=== PATIENT | female | born 1935 | race Caucasian/White ===

== ENCOUNTER 2019-10-09 04:09 | Observation (INO) | payer MEDICARE, MEDICAID ==
[~2019-10-09] VITALS: Ht 165.1 cm; Wt 97.0 kg
[2019-10-09] MEDS ORDERED: magnesium 2GM in 50ml NS 50 ML IV PRN (04:30)
[2019-10-09] MEDS ORDERED: potassium Cl 20 mEq SR tablet PO PRN ×2 (04:30)
[2019-10-09] MEDS ORDERED: magnesium hydroxide 30ml (MOM) UD suspension PO PRN (04:30)
[2019-10-09] MEDS ORDERED: mag hydrox/Alum hydrox/simeth 30ml oral suspension PO PRN (04:30)
[2019-10-09] MEDS ORDERED: ondansetron/PF 4mg/2ml inj IV PRN (04:30)
[2019-10-09] MEDS ORDERED: magnesium Cl slow-release 64mg tablet PO PRN (04:30)
[2019-10-09] MEDS ORDERED: HYDROcodone/acetaminophen 5mg/325mg tablet PO PRN (04:30)
[2019-10-09] MEDS ORDERED: acetaminophen 325mg tablet PO PRN (04:30)
[2019-10-09] MEDS ORDERED: potassium CL 10mEq/100ml bag 100 ML IV PRN ×2 (04:30)
[2019-10-09] MEDS ORDERED: magnesium 4gm in 100ml NS 100 ML IV PRN (04:30)
[2019-10-09] MEDS ORDERED: FURO-149 PO (04:39)
[2019-10-09] MEDS ORDERED: NITR1PAT63 TD (04:39)
[2019-10-09] MEDS ORDERED: METO25TA6 PO (04:39)
[2019-10-09] MEDS ORDERED: NYSPWD TP (04:39)
[2019-10-09] MEDS ORDERED: SPIR25TA5 PO (04:39)
[2019-10-09] MEDS ORDERED: ACET-1025 PO (04:39)
[2019-10-09] MEDS ORDERED: POTA10TA19 PO (04:39)
[2019-10-09] MEDS ORDERED: non-formulary drug (Acetaminophen (Tylenol Extra Strength) 1 TAB) PO PRN (05:35)
--- NOTE | 2019-10-09 06:35 | NUR ---
Patient lying supine,asleep.awaiting room assignment.
--- NOTE | 2019-10-09 07:55 | NUR ---
Patient in room ED 6. I have received report from Jacky PARKS and had the opportunity to ask questions and assume patient care.
[2019-10-09] MEDS: K and/or MAG REPLACEMENT MC SCH ×2 (08:00→20:00)
--- NOTE | 2019-10-09 08:45 | NUR ---
Patient oriented to unit, transferred by slide board, VS 100.7 degrees, tylenol given, HR 65, RR 26 on 2L NC, BP 132/68, no pain, wound care consult and TP E&T ordered.
[2019-10-09] MEDS: docusate sod 100mg capsule PO SCH ×2 (08:49→21:10)
[2019-10-09] MEDS: spironolactone 25 MG tablet PO SCH (08:50)
[2019-10-09] MEDS: furosemide 40mg tablet PO SCH (08:50)
[2019-10-09] MEDS: metoprolol tartrate 25mg tablet PO SCH (08:51)
[2019-10-09 09:00] VITALS: BP 132/68
[2019-10-09 10:00] VITALS: BP 103/47
[2019-10-09] MEDS ORDERED: vancomycin/NS 1 GM ADD-VANTAGE 250 ML IV ONE (10:10)
--- NOTE | 2019-10-09 10:18 | NUR ---
Paged Dr. Ratliff. Will Partida. [id number]. Would you like cultures drawn prior to starting the IV Vanco and Zosyn? Virgil [phone]
[2019-10-09 11:02] LABS: BASOPHILS # (AUTO) 0.1 X10'3 (0-0.2); BASOPHILS % (AUTO) 0.8 % (0-1); EOSINOPHILS # (AUTO) 0.1 X10'3 (0-0.9); EOSINOPHILS % (AUTO) 1.1 % (0-6); HEMATOCRIT 27.5 % (35.0-45.0); HEMOGLOBIN 9.1 g/dl (12.0-16.0); LYMPHOCYTES # (AUTO) 0.6 X10'3 (1.1-4.8); LYMPHOCYTES % (AUTO) 8.8 % (21-51); MEAN CORPUSCULAR HEMOGLOBIN 28.5 PG (27.0-31.0); MEAN CORPUSCULAR VOLUME 86.5 FL (78-98); MEAN PLATELET VOLUME 7.1 FL (7.4-10.4); MONOCYTES # (AUTO) 1.1 X10'3 (0-0.9); MONOCYTES % (AUTO) 14.8 % (2-12); NEUTROPHILS # (AUTO) 5.4 X10'3 (1.8-7.7); NEUTROPHILS % (AUTO) 74.5 % (42-75); PLATELET COUNT 188 X10'3 (140-440); RED BLOOD COUNT 3.18 X10'6 (4.20-5.60); RED CELL DISTRIBUTION WIDTH 15.9 % (11.5-14.5); WHITE BLOOD COUNT 7.2 X10'3 (4.5-11.0)
[2019-10-09 11:19] LABS: ALANINE AMINOTRANSFERASE 9 U/L (12-78); ALKALINE PHOSPHATASE 62 IU/L (46-116); ANION GAP 5 (8-16); CALCIUM 8.1 MG/DL (8.5-10.1); CHLORIDE 104 MMOL/L (99-107); CREATININE 0.99 MG/DL (0.40-0.90); MAGNESIUM 1.8 MG/DL (1.5-2.4); POTASSIUM 4.5 MMOL/L (3.5-5.1); SODIUM 133 MMOL/L (135-145); TOTAL CARBON DIOXIDE 24.3 MMOL/L (24-32); eGFR 53 ML/MIN
[2019-10-09 11:27] LABS: ALBUMIN 2.2 G/DL (3.4-5.0); ALBUMIN/GLOBULIN RATIO 0.3 (1.1-1.5); ASPARTATE AMINO TRANSFERASE 16 U/L (10-37); BILIRUBIN,TOTAL 1.5 MG/DL (0.1-1.0); BLOOD UREA NITROGEN 18 MG/DL (7-18); BUN/CREATININE RATIO 18.2 (6.6-38.0); GLUCOSE 122 MG/DL (70-104); TOTAL PROTEIN 8.5 G/DL (6.4-8.2)
[2019-10-09] MEDS ORDERED: NITR0.4T51 SL (14:21)
--- NOTE | 2019-10-09 15:40 | NUR ---
Student documentation: I have reviewed assessment performed and documented by Shellie GREGORY [facility].
[2019-10-09] MEDS: piperacillin/tazo 3.375gm/50ml 50 ML IV SCH ×2 (15:49→16:00)
[2019-10-09] MEDS: normal saline 1000ml 1,000 ML IV SCH (15:59)
--- NOTE | 2019-10-09 16:51 | NUR ---
Patient has dentures in.
[2019-10-09 18:00] VITALS: BP 122/46
--- NOTE | 2019-10-09 18:27 | NUR ---
Attempted straight cath for UA multiple times, but patient is refusing and non-cooperative.
--- NOTE | 2019-10-09 18:30 | NUR ---
Problems reprioritized. Patient report given, questions answered & plan of care reviewed with Anya PARKS.
[2019-10-09 22:00] VITALS: BP 128/44
[2019-10-10] MEDS: piperacillin/tazo 3.375gm/50ml 50 ML IV SCH ×4 (01:32→23:52)
--- NOTE | 2019-10-10 02:00 | NUR ---
Patient in room ORTHO 4018. I have received report from Teresita PARKS and had the opportunity to ask questions and assume patient care.
[2019-10-10 02:30] VITALS: BP 119/60
[2019-10-10] MEDS: normal saline 1000ml 1,000 ML IV SCH ×2 (04:45→19:41)
[2019-10-10 05:42] LABS: ANION GAP 5 (8-16); CHLORIDE 103 MMOL/L (99-107); CREATININE 1.03 MG/DL (0.40-0.90); SODIUM 134 MMOL/L (135-145); TOTAL CARBON DIOXIDE 26.4 MMOL/L (24-32); eGFR 51 ML/MIN
[2019-10-10 05:53] LABS: ALANINE AMINOTRANSFERASE 8 U/L (12-78); ALBUMIN 2.1 G/DL (3.4-5.0); ALBUMIN/GLOBULIN RATIO 0.3 (1.1-1.5); ALKALINE PHOSPHATASE 63 IU/L (46-116); ASPARTATE AMINO TRANSFERASE 12 U/L (10-37); BILIRUBIN,TOTAL 1.8 MG/DL (0.1-1.0); BLOOD UREA NITROGEN 20 MG/DL (7-18); BUN/CREATININE RATIO 19.4 (6.6-38.0); CALCIUM 8.2 MG/DL (8.5-10.1); GLUCOSE 93 MG/DL (70-104); TOTAL PROTEIN 8.4 G/DL (6.4-8.2)
[2019-10-10 05:58] LABS: BASOPHILS # (AUTO) 0.1 X10'3 (0-0.2); BASOPHILS % (AUTO) 0.9 % (0-1); EOSINOPHILS # (AUTO) 0.2 X10'3 (0-0.9); EOSINOPHILS % (AUTO) 2.6 % (0-6); HEMATOCRIT 27.8 % (35.0-45.0); LYMPHOCYTES % (AUTO) 14.7 % (21-51); MEAN CORPUSCULAR HEMOGLOBIN 28.3 PG (27.0-31.0); MEAN CORPUSCULAR HGB CONC 32.5 g/dL (33.0-36.5); MEAN CORPUSCULAR VOLUME 87.1 FL (78-98); MEAN PLATELET VOLUME 7.1 FL (7.4-10.4); MONOCYTES % (AUTO) 14.2 % (2-12); NEUTROPHILS # (AUTO) 4.8 X10'3 (1.8-7.7); NEUTROPHILS % (AUTO) 67.6 % (42-75); PLATELET COUNT 165 X10'3 (140-440); RED BLOOD COUNT 3.19 X10'6 (4.20-5.60); RED CELL DISTRIBUTION WIDTH 15.8 % (11.5-14.5); WHITE BLOOD COUNT 7.1 X10'3 (4.5-11.0)
--- NOTE | 2019-10-10 06:44 | NUR ---
Problems reprioritized. Patient report given, questions answered & plan of care reviewed with Sharonda PARKS.
--- NOTE | 2019-10-10 06:56 | NUR ---
Patient in room PAUL 358. I have received report from Gricelda PARKS and had the opportunity to ask questions and assume patient care.
[2019-10-10 08:00] VITALS: BP 115/46
[2019-10-10] MEDS ORDERED: mineral oil/petrolatum, white cream 113gm jar TP SCH (08:00)
[2019-10-10] MEDS: K and/or MAG REPLACEMENT MC SCH ×2 (08:00→19:31)
[2019-10-10] MEDS: metoprolol tartrate 25mg tablet PO SCH (08:25)
[2019-10-10] MEDS: docusate sod 100mg capsule PO SCH ×2 (08:25→19:43)
[2019-10-10] MEDS: spironolactone 25 MG tablet PO SCH (08:26)
[2019-10-10] MEDS: furosemide 40mg tablet PO SCH (08:26)
[2019-10-10] MEDS ORDERED: VANCOmycin 1250MG/NS 250ml Bag 250 ML IV SCH (10:00)
[2019-10-10 14:18] VITALS: BP 126/55
[2019-10-10 15:18] LABS: CLARITY,URINE CLEAR (Clear); COLOR,URINE STRAW (Yellow); GLUCOSE, URINE NEGATIVE (Neg); KETONES,URINE NEGATIVE (Neg); LEUKOCYTE ESTERASE ,URINE NEGATIVE (Neg); NITRITES, URINE NEGATIVE (Neg); OCCULT BLOOD,URINE NEGATIVE (Neg); PROTEIN,URINE NEGATIVE (Neg); UROBILINOGEN,URINE 0.2 E.U/dL (0.2-1.0)
[2019-10-10 15:19] LABS: UA COLLECTION TYPE VOIDED
[2019-10-10 18:00] VITALS: BP 130/56
--- NOTE | 2019-10-10 18:39 | NUR ---
patient seen by wound team, dressing orders given and completed to bilat lower legs. BM x1. Continues on IV ABX. seen by DR Ratliff. Is for DC tomorrow to [facility] at 0915hrs. Report given to Nena PARKS
--- NOTE | 2019-10-10 18:44 | NUR ---
Patient in room PAUL 345. I have received report from Sharonda PARKS and had the opportunity to ask questions and assume patient care.
[2019-10-10] MEDS: lactobacillus rhamnosus 10,000 MMU CELLS/CAPSULE PO SCH (19:43)
[2019-10-10] MEDS ORDERED: nystatin 15 GM powder TP SCH (20:00)
[2019-10-10 20:12] LABS: % IRON SATURATION 10 % (11-46); IRON 22 UG/DL (49-151); TOTAL IRON BINDING CAPACITY 217 UG/DL (259-388)
[2019-10-11] VITALS: BP_SYST 132; BP_SYST 140; BP_DIAS 61; BP_DIAS 72
--- NOTE | 2019-10-11 06:21 | NUR ---
Patient in room PAUL 358A. I have received report from KASEY SHEA and had the opportunity to ask questions and assume patient care.
--- NOTE | 2019-10-11 06:35 | NUR ---
Problems reprioritized. Patient report given, questions answered & plan of care reviewed with Juany PARKS.
[2019-10-11 07:00] VITALS: BP 129/55
[2019-10-11] MEDS: normal saline 1000ml 1,000 ML IV SCH (07:25)
[2019-10-11] MEDS: lactobacillus rhamnosus 10,000 MMU CELLS/CAPSULE PO SCH (08:00)
[2019-10-11 08:01] VITALS: BP_SYST 129
[2019-10-11] MEDS: spironolactone 25 MG tablet PO SCH (08:01)
[2019-10-11] MEDS: metoprolol tartrate 25mg tablet PO SCH (08:01)
[2019-10-11] MEDS: docusate sod 100mg capsule PO SCH (08:01)
[2019-10-11] MEDS: furosemide 40mg tablet PO SCH (08:01)
[2019-10-11] MEDS: piperacillin/tazo 3.375gm/50ml 50 ML IV SCH (08:20)
--- NOTE | 2019-10-11 09:34 | NUR ---
CALLED REPORT TO KASEY CHAMPAGNE AT [facility]
--- NOTE | 2019-10-11 10:15 | NUR ---
PATIENT STABLE AND APPROPRIATE TO DISCHARGE BACK TO [facility], IV TAKEN OUT, REPORT CALLED TO KASEY CHAMPAGNE AT [facility], ALL BELONGINGS SENT WITH PATIENT, PATIENT TAKEN TO [facility] BY [facility] AND ACCOMPANIED BY [facility] STAFF.
[2019-10-13] MEDS ORDERED: VANCOMYCIN LEVEL IV ONE (09:30)
== END 2019-10-11 10:16 | disposition short-term general hospital (02) ==
LOC: ER 04:09 → ED HOLD 04:29 → ORTHO 4S 08:12 → SUR 3N 10-10 02:23
PROVIDERS: ADMIT Family Medicine; ATTEND Family Medicine
DX: S81.801A Unspecified open wound, right lower leg, initial encounter (principal); S81.802A Unspecified open wound, left lower leg, initial encounter; I10 Essential (primary) hypertension; I73.9 Peripheral vascular disease, unspecified; Z91.19 Patient's noncompliance with other medical treatment and regimen; Z79.899 Other long term (current) drug therapy; X58.XXXA Exposure to other specified factors, initial encounter; Y93.89 Activity, other specified; Y92.89 Other specified places as the place of occurrence of the external cause
CPT/HCPCS: 36415; 71045; 80053; 81003; 82728; 83540; 83550; 83605; 83735; 84100; 84145; 85025; 87040; 87081; 96361; 96365; 96366; 96367; 96368; 96376; 99284; G0378; J2543; J3370; J7030